=== PATIENT | female | born 1965 | race Caucasian/White ===

== ENCOUNTER → 2020-11-17 13:55 | Outpatient (CLI) | payer OTHER, SELFPAY ==
[2020-11-17 15:03] LABS: EXAGEN MAILED SPECIMEN
[2020-11-17 15:14] LABS: Absolute Lymphocyte Count 2.77 X10^3/uL (0.83-4.51); Absolute Neutrophil Count 4.5 X10^3/uL (2.0-7.7); Basophil# 0.03 X10^3/uL; Basophil% 0.4 % (0-1); Eosinophil# 0.04 X10^3/uL; Eosinophils% 0.5 % (0-5); Hematocrit 35.9 % (37-47); Hemoglobin 11.9 g/dL (12.0-15.0); Lymphocyte # 2.77 X10^3/ul (0.83-4.51); Lymphocyte % 35.5 % (19-41); Mean Corp Hgb Conc 33.1 g/dL (32-36); Mean Corpuscular Volume 87.6 fL (81-99); Monocyte# 0.42 X10^3/uL; Monocyte% 5.4 % (0-10); NRBC Flagged by Analyzer 0 % (0-5); Neutrophil % 57.6 % (47-70); Platelet Count 269 K/mm3 (150-450); RBC Distribution Width CV 13.2 % (11.6-14.6); RBC Distribution Width SD 41.7 fl (35.1-43.9); White Blood Count 7.8 K/mm3 (4.4-11.0)
[2020-11-17 15:27] LABS: International Normalized Ratio 1.1; Prothrombin Time (Protime)PT. 13.2 SECONDS (11.7-14.9)
[2020-11-17 15:28] LABS: Partial Thromboplast Time 28.3 Seconds (24.1-36.2)
[2020-11-17 15:51] LABS: Erythrocyte Sedimentation Rate 11 mm/hr (0-30)
[2020-11-17 16:06] LABS: AST(SGOT) 17 U/L (15-37); Alanine Aminotransfer ALT/SGPT 32 U/L (13-56); Albumin, Serum 4.2 g/dL (3.2-5.0); Alkaline Phosphatase 86 U/L (45-117); Anion Gap 7 (5-15); BUN 17 mg/dL (7-18); BUN/Creat Ratio 11.7 RATIO (10-20); CRP < 2.90 mg/L (0.0-3.0); Calcium,Total 10.2 mg/dL (8.5-10.1); Chloride 103 mmol/L (98-107); Creatinine, Serum 1.45 mg/dL (0.55-1.02); EST Glomerular Filtration Rate 40 mL/min (>60); Est Glom Filt Rate - Afr Amer 49 mL/min (>60); Glucose 84 mg/dL (74-106); Potassium 3.3 mmol/L (3.5-5.1); Protein, Total 8.2 g/dL (6.4-8.2); Sodium Level 139 mmol/L (136-145)
[2020-11-17 17:41] LABS: Color, Urine Yellow (Yellow); Glucose, Dipstick Normal (Normal); Ketone-Dipstick Negative (Negative); Leukocyte Esterase-Dipstick Negative /ul (Negative); Nitrite-Dipstick Negative (Negative); Occult Blood-Urine 250 /ul (Negative); Protein-Dipstick 15 mg/dl (Negative); Urine Bilirubin Dipstick Negative (Negative); Urine Clarity Sl. Cloudy (Clear); Urine Urobilinogen Normal (Normal)
[2020-11-17 18:08] LABS: Protein, Urine (Random) 20.6 mg/dL (<11.9); Protein:Creat Ratio 202 mg/g CRE (0-200)
[2020-11-20 16:08] LABS: Dilute Russell Viper Venom 31.7 sec (0.0-47.0); PTT-LA 30.8 sec (0.0-51.9); Thrombin Time 18.4 sec (0.0-23.0); dPT Confirm Ratio 1.01 Ratio (0.00-1.40)
[2020-11-21 12:39] LABS: Interpretation Comment: (.)
[2020-11-21 16:08] LABS: Hexagonal Phase Phospholipid 0 sec (0-11); Thrombin Time 18.1 sec (0.0-23.0)
== END ==
PROVIDERS: PCP Internal Medicine; Referring Provider Internal Medicine Rheumatology; Visit Provider Internal Medicine Rheumatology
DX: M06.4 Inflammatory polyarthropathy (principal); R76.8 Other specified abnormal immunological findings in serum; I10 Essential (primary) hypertension; I12.9 Hypertensive chronic kidney disease with stage 1 through stage 4 chronic kidney disease, or unspecified chronic kidney disease; N18.9 Chronic kidney disease, unspecified; E78.5 Hyperlipidemia, unspecified; J44.9 Chronic obstructive pulmonary disease, unspecified; H81.10 Benign paroxysmal vertigo, unspecified ear; R51.9 Headache, unspecified
CPT/HCPCS: 80053; 81002; 82570; 84156; 85025; 85598; 85610; 85652; 85670; 85730; 86140

== ENCOUNTER → 2021-01-26 12:17 | Outpatient (CLI) | payer OTHER, SELFPAY ==
[2021-01-26 12:43] VITALS: PULSE 100; PULSE 103; PULSE 104; PULSE 105; PULSE 107; PULSE 94; PULSE 96; O2SAT 97; O2SAT 98; O2SAT 99
--- NOTE | 2021-01-27 10:55 | WT_ITS ---
PSN 6 Minute Walk Test 6 Minute Walk Test 6 Minute Walk Test: 6 Minute Walk Test PSN:6-Minute Walk Test Start: 01/26/21 12:43 Freq: Status: Active Protocol: RESP.6MINW Document 01/26/21 12:43 [facility] (Rec: 01/26/21 12:47 [facility] [id number]) 6 Minute Walk Test Date Performed 01/26/21 Time Performed 12:30 Height 5 ft 5 in Weight: 81.647 kg Weight in Pounds 180.[address]: Blade Argueta Assistive device used: None Pre-test Oxygen Delivery Method Room Air Pulse Ox (%) 98 Pulse Rate (60-100 beats/min) 96 Dyspnea Evans Scale (0-10) 0 1st minute Oxygen Delivery Method Room Air Pulse Ox (%) 98 Pulse Rate (60-100 beats/min) 100 Dyspnea Evans Scale (0-10) 0 Number of Rests Taken 0 2nd minute Oxygen Delivery Method Room Air Pulse Ox (%) 97 Pulse Rate (60-100 beats/min) 103 H Dyspnea Evans Scale (0-10) 0 Number of Rests Taken 0 3rd minute Oxygen Delivery Method Room Air Pulse Ox (%) 97 Pulse Rate (60-100 beats/min) 104 H Dyspnea Eavns Scale (0-10) 0 Number of Rests Taken 0 4th minute Oxygen Delivery Method Room Air Pulse Ox (%) 98 Pulse Rate (60-100 beats/min) 105 H Dyspnea Evans Scale (0-10) 1 Number of Rests Taken 0 5th minute Oxygen Delivery Method Room Air Pulse Ox (%) 97 Pulse Rate (60-100 beats/min) 104 H Dyspnea Evans Scale (0-10) 1 Number of Rests Taken 0 6th minute Oxygen Delivery Method Room Air Pulse Ox (%) 98 Pulse Rate (60-100 beats/min) 107 H Dyspnea Evans Scale (0-10) 1 Number of Rests Taken 0 Post-test Oxygen Delivery Method Room Air Pulse Ox (%) 99 Pulse Rate (60-100 beats/min) 94 Dyspnea Evans Scale (0-10) 0 Full Laps Walked 19 Partial Lap, Number of Tiles Walked 12 Total Distance Walked (ft) 1133 Interpretation Interpretation: The patient ambulated 1133 feet over the course of 6 minutes beginning on room air without assistive devices or breaks. Pretesting oxygen saturation was noted to be 98% on room air. With ambulation, the christa oxygen saturation was 97%. There was no significant exertional oxygen desaturation. Recommendations Recommendations: There is no indication for the use of supplemental oxygen at this time.
== END ==
PROVIDERS: PCP Internal Medicine; Referring Provider Internal Medicine Critical Care Medicine; Visit Provider Internal Medicine Critical Care Medicine
DX: R06.02 Shortness of breath (principal)
CPT/HCPCS: 94618

== ENCOUNTER → 2021-02-02 12:28 | Outpatient (CLI) | payer OTHER, SELFPAY ==
[2021-02-02] MEDS: Methacholine Chloride 18 ml neb kit INHALATION (12:47)
--- NOTE | 2021-02-02 15:32 | BRONCHALL_ITS ---
Bronchoprovocation Challenge Bronchoprovocation Challenge Bronchoprovocation Challenge: BRONCHOPROVOCATION STUDY INTERPRETATION Brief HPI: Patient is a 55 year old female, currently under the care of Dr. Argueta, who presents to [facility] for a bronchoprovocation study secondary to diagnosis of dyspnea. Respiratory therapist reports good effort and reproducible results. Interpretation: Initial spirometry showed no large airways obstructive ventilatory defect. The patient was then given increasingly concentrated doses of methacholine in a stepwise/standardized fashion, using a modified ATS protocol. The patient?s maximum reduction in FEV1 was 15 percent predicted. Impression: Negative Bronchoprovocation study. This is NOT consistent with the diagnosis of asthma.
== END ==
LOC: PSN 12:30
PROVIDERS: PCP Internal Medicine; Referring Provider Internal Medicine Critical Care Medicine; Visit Provider Internal Medicine Critical Care Medicine
DX: R06.02 Shortness of breath (principal)
CPT/HCPCS: 94070; 95070

== ENCOUNTER → 2021-02-14 14:55 | Outpatient (CLI) | payer OTHER, SELFPAY ==
--- NOTE | 2021-02-14 14:57 | ECHOD_ITS ---
Version 2 Reason For Study: Dyspnea/SOB Procedure This was a 2D Doppler, Color Flow transthoracic echocardiogram. Exam performed in department. Left Ventricle Normal LV size. Left ventricular systolic function is normal. The estimated ejection fraction is 60 %. Normal diastology for age. No regional wall motion abnormalities noted. Right Ventricle Normal RV size. Normal systolic function. Atria Normal left atrium. Normal right atrium. Mitral Valve Normal mitral valve. Tricuspid Valve Normal tricuspid valve. Unable to estimate RV systolic pressure due to inadequate jet, pulmonary artery pressure probably normal. Aortic Valve Normal aortic valve. Trisinus/trileaflet aortic valve. Pulmonic Valve Normal pulmonic valve. Great Vessels Normal aortic root. The pulmonary artery is normal size. Normal inferior vena cava. Pericardium/Pleural Small pericardial effusion. MMode/2D Measurements & Calculations LVIDd: 4.5 cm IVSd: 1.00 cm LA dimension: 3.5 cm LVIDs: 2.8 cm LVPWd: 1.0 cm FS: 37.0 % LAV(MOD-bp): 50.4 ml LA A4 area: 18.9 cm2 RA A4 area: 12.9 cm2 LAV(MOD-bp) Indexed: 26.3 ml/m2 LAV(MOD-sp2): 43.5 ml LAV(MOD-sp4): 53.5 ml Time Measurements MV dec time: 0.25 sec Doppler Measurements & Calculations MV E max ananda: 89.0 cm/sec Lat Peak E' Ananda: 12.4 cm/sec Med Peak E' Ananda: 8.1 cm/sec MV A max ananda: 73.8 cm/sec E/E' lat: 7.2 E/E' med: 11.0 MV E/A: 1.2 MV V2 max: 94.9 cm/sec MV P1/2t max ananda: 94.9 cm/sec Ao V2 max: 125.1 cm/sec MV max P.6 mmHg MV P1/2t: 62.0 msec Ao max P.3 mmHg MV V2 mean: 53.1 cm/sec MV dec slope: 448.1 cm/sec2 MV mean P.3 mmHg MVA(P1/2t): 3.5 cm2 MV V2 VTI: 23.2 cm LV V1 max: 102.2 cm/sec PA V2 max: 86.7 cm/sec LV V1 max P.2 mmHg ECHO/Echo Complete Interpretation Summary Normal LV size. Left ventricular systolic function is normal. The estimated ejection fraction is 60 %. Normal diastology for age. Structurally normal valves. Ordering Physician: Sarah Lopez Referring Physician: Erika Parrish Performed By: Parth Benson RCS
== END ==
PROVIDERS: PCP Internal Medicine; Visit Provider Nurse Practitioner Acute Care
DX: R06.02 Shortness of breath (principal)
CPT/HCPCS: 93306

== ENCOUNTER → 2021-04-05 17:37 | Outpatient (CLI) | payer OTHER, SELFPAY ==
--- NOTE | 2021-04-05 17:40 | CT_ITS ---
STUDY: CT Chest W/O Contrast Injection 04/05/2021 6:02 PM REASON FOR EXAM: Female, 55 years old. shortness of breath Individualized dose optimization techniques were used for this CT. TECHNIQUE: Transaxial imaging was performed withoutIV contrast material. COMPARISON: None. FINDINGS: There are degenerative changes of the shoulders. There is no pneumothorax. There is no demonstrated pleural abnormality. There are calcifications of the coronary arteries. Normal mediastinum. Normal hilar regions. Normal pulmonary arteries. There is atherosclerotic calcification of the aortic arch with tortuosity and elongation of the aortic arch and descending thoracic aorta. There are multi-level degenerative changes of the thoracic spine. There are no acute findings of the upper abdomen. CT/Chest without Contrast IMPRESSION: There are no acute findings. Electronically Signed: Bridger Saldivar MD at 18:09 EST , Service support ,
== END ==
PROVIDERS: PCP Internal Medicine; Visit Provider Nurse Practitioner Acute Care
DX: R06.02 Shortness of breath (principal)
CPT/HCPCS: 71250

== ENCOUNTER → 2024-06-18 | Outpatient (CLI) | payer OTHER, SELFPAY ==
[2024-06-18 09:39] VITALS: PULSE 101; PULSE 106; PULSE 108; PULSE 109; PULSE 90; PULSE 95; O2SAT 93; O2SAT 94; O2SAT 95; O2SAT 96; O2SAT 97
--- NOTE | 2024-06-22 12:01 | PCM.PSN.6M ---
PSN 6 Minute Walk Test 6 Minute Walk Test 6 Minute Walk Test: 6 Minute Walk Test PSN:6-Minute Walk Test Start: 06/18/24 09:39 Freq: Status: Active Protocol: RESP.6MINW Document 06/18/24 09:39 [facility] (Rec: 06/18/24 09:46 [facility] [id number]) 6 Minute Walk Test Date Performed 06/18/24 Time Performed 08:30 Height 5 ft 2 in Weight: 180 lb Weight in Pounds 180.[address]: Sandee Olmos Assistive device None used: Pre-test Oxygen Delivery Room Air Method Pulse Ox (%) 96 Pulse Rate (60-100 90 beats/min) Dyspnea Evans Scale ( 0.5 0-10) Exertion Evans Scale 6 (6-20) 1st minute Oxygen Delivery Room Air Method Pulse Ox (%) 94 Pulse Rate (60-100 101 H beats/min) 2nd minute Oxygen Delivery Room Air Method Pulse Ox (%) 93 Pulse Rate (60-100 109 H beats/min) 3rd minute Oxygen Delivery Room Air Method Pulse Ox (%) 93 Pulse Rate (60-100 108 H beats/min) 4th minute Oxygen Delivery Room Air Method Pulse Ox (%) 94 Pulse Rate (60-100 106 H beats/min) 5th minute Oxygen Delivery Room Air Method Pulse Ox (%) 93 Pulse Rate (60-100 106 H beats/min) 6th minute Oxygen Delivery Room Air Method Pulse Ox (%) 95 Pulse Rate (60-100 106 H beats/min) Dyspnea Evans Scale ( 3 0-10) Exertion Evans Scale 14 (6-20) Post-test Oxygen Delivery Room Air Method Pulse Ox (%) 97 Pulse Rate (60-100 95 beats/min) Full Laps Walked 15 Partial Lap, Number 6 of Tiles Walked Total Distance 891 Walked (ft) Interpretation Interpretation: The patient ambulated 891 feet over the course of 6 minutes beginning on room air without assistive devices. Pretesting oxygen saturation was noted to be 96% on room air. With ambulation, the christa oxygen saturation was 93%. There was no significant exertional oxygen desaturation. Recommendations Recommendations: There is no indication for the use of supplemental oxygen at this time.
== END | disposition home or self-care (01) ==
LOC: PSN 08:18
PROVIDERS: PCP Internal Medicine; Referring Provider Nurse Practitioner Family; Visit Provider Nurse Practitioner Family
DX: M31.30 Wegener's granulomatosis without renal involvement (principal)
CPT/HCPCS: 94618

== ENCOUNTER → 2024-06-26 | Outpatient (CLI) | payer OTHER, SELFPAY | END | disposition home or self-care (01) | PROVIDERS: PCP Internal Medicine; Referring Provider Nurse Practitioner Family; Visit Provider Nurse Practitioner Family | DX: M31.30 Wegener's granulomatosis without renal involvement (principal) | CPT/HCPCS: 94060; 94726; 94729 ==

== ENCOUNTER → 2024-07-15 | Outpatient (CLI) | payer OTHER, SELFPAY | END | disposition home or self-care (01) | LOC: SL 11:22 | PROVIDERS: PCP Internal Medicine; Visit Provider Nurse Practitioner Family | DX: R06.02 Shortness of breath (principal) | CPT/HCPCS: 94762 ==

== ENCOUNTER → 2024-10-30 | Outpatient (CLI) | payer OTHER, SELFPAY ==
--- NOTE | 2024-10-30 18:09 | CT_ITS ---
PROCEDURE: SINUS/FACIAL BONE 10/31/2024 REASON FOR EXAM: CHRONIC SINUSITIS TECHNIQUE: SINUS/FACIAL BONE Coronal and Sagittal reconstruction series were provided. One or more dose reduction techniques were used (e.g., Automated exposure control, adjustment of the mA and/or kV according to patient size, use of iterative reconstruction technique). RADIATION DOSE SUMMARY: CTDlvol: MGy DLP: MGycm COMPARISON: none FINDINGS: Total obliteration of the right maxillary antrum by diffuse mucosal thickening encroaching upon its ostium and associated with related thickening and sclerosis of its bony boundaries. Focal mucosal thickening of the right anterior ethmoidal air cells Clear sphenoid and frontal sinuses, left maxillary antrum as well as the and left ethmoidal air cells. Uncinate Processes: No deviation or bulla formation O-M UNIT: patent left osteomatal unit. Sphenoethmoidal recesses. Patent Fovea Ethmoidalis: Normal position. Fovea ethmoidalis and cribriform plate are not low lying Nasal Septum: bowed convex to the right side. Turbinates: Thickening of the mucosa covering the left inferior turbinate. Clear bilateral middle hilary bullosa. Nasopharynx: no obvious abnormalities. Mastoid air cells and middle ear clefts: Unremarkable Facial Bones and mandible: Unremarkable. CT/Sinus/Facial Bone IMPRESSION: Right maxillary marked chronic sinusitis. Mild right ethmoidal sinusitis. Reading Location: [place] [id number]
== END | disposition home or self-care (01) ==
PROVIDERS: PCP Physician Assistant; Visit Provider Otolaryngology
DX: J32.9 Chronic sinusitis, unspecified (principal)
CPT/HCPCS: 70486